=== PATIENT | male | born 1960 | race Caucasian/White ===

== ENCOUNTER → 2016-10-10 | Outpatient (CLI) | payer MEDICARE, MEDICAID ==
[~2016-10-10] MED LIST: AMLO5TAB4 PO; CARV12.52 PO; FENT1PAT11 TD; OXYC-197 PO; PREG300C PO; SITA1TAB6 PO; TACR1CAP PO; TEST1PAT7 TD; ZOLP5TAB PO
== END ==
LOC: SLEEP 19:54
PROVIDERS: ATTEND Family Medicine
DX: G47.33 Obstructive sleep apnea (adult) (pediatric) (principal)

== ENCOUNTER 2016-11-06 20:50 | Outpatient (CLI) | payer MEDICARE, MEDICAID | END 2016-11-07 06:42 | disposition home or self-care (01) | LOC: SLEEP 20:50 | PROVIDERS: ATTEND Family Medicine | DX: G47.33 Obstructive sleep apnea (adult) (pediatric) (principal) | CPT/HCPCS: 95811 ==

== ENCOUNTER 2017-11-01 21:38 | Emergency (ER) | payer MEDICARE, MEDICAID ==
[~2017-11-01] VITALS: Ht 180.3 cm; Wt 131.5 kg
--- OUTSIDE RECORDS SUMMARY | 2017-11-01 21:44 | XMS REPORT | Encounter Summary ---
Author Author [facility] Organization [facility] Address Unknown Phone Unavailable Care Team Providers Care Electric Drill Operator Name Role Phone Artie Berg MD PCP Liliane Malik RN Unavailable Unavailable Linnette Palomares RN Unavailable Unavailable Kendra Amin RN Unavailable Unavailable Ken Flores RN Unavailable Unavailable Max Colin RN Unavailable Unavailable Manju Velez RN Unavailable Unavailable Adriana Weaver CONTENT STRATEGIST Unavailable Rosaura Dockery Unavailable Unavailable Hilary Frank Unavailable Unavailable Maryanne Freitas Unavailable Unavailable Jesse Red MD Unavailable Encounter Details Date Type Department Care Team Description 08/28/2017 Orders Only Center for Mathew Man RN History of liver Transplantation-Liver transplant (HCC) (Primary Transplant Hep Dx); [address] Long-term use of [facility] [place] [address] Social History Tobacco Use Types Packs/Day Years Used Date Former Smoker Quit: 06/08/2001 Alcohol Use Drinks/Week oz/Week Comments Yes "occasional" Sex Assigned at Date Recorded Not on file as of this encounter Functional Status Functional Status Response Date of Assessment Does the patient have a hearing impairment: No 06/29/2017 Does the patient have a visual impairment: Yes 06/29/2017 Does the patient have impaired ambulation: No 06/29/2017 Does the patient have an activity of daily living No 06/29/2017 (ADL) impairment: Does the patient have an instrumental activity of No 06/29/2017 daily living (IADL) impairment: Cognitive Status Response Date of Assessment Does the patient have a cognitive impairment: No 06/29/2017 as of this encounter Plan of Treatment Not on fileas of this encounter Results * HEPATITIS C VIRAL LOAD PCR QUANT (10/19/2017 12:08 PM) Component Value Ref Range Hepatitis C PCR NOT DETECTED Quantitative Specimen Performing Laboratory Blood LABDE INTERFACE Narrative Outside Lab Verified by Katherine Faustin on 10/22/2017. in this encounter Visit Diagnoses Diagnosis History of liver transplant (HCC) - Primary Liver replaced by transplant Long-term use of immunosuppressant medication Encounter for long-term (current) use of other medications
--- OUTSIDE RECORDS SUMMARY | 2017-11-01 21:44 | XMS REPORT | Encounter Summary ---
Author Author [facility] Organization [facility] Address Unknown Phone Unavailable Care Team Providers Care Inspector Bicycle Name Role Phone Artie Berg MD PCP Liliane Malik RN Unavailable Unavailable Linnette Palomares RN Unavailable Unavailable Kendra Amin RN Unavailable Unavailable Ken Flores RN Unavailable Unavailable Max Colin RN Unavailable Unavailable Manju Velez RN Unavailable Unavailable Adriana Weaver INSPECTOR PRODUCTION PLASTIC PARTS Unavailable Rosaura Dockery Unavailable Unavailable Hilary Frank Unavailable Unavailable Maryanne Freitas Unavailable Unavailable Jesse Red MD Unavailable Encounter Details Date Type Department Care Team Description 10/22/2017 [facility] of [facility] Trans[facility]-Liver transplant (HCC); Transplant Hep Long-term use of [address] immunosuppressant [facility] [place] [address] Social History Tobacco Use Types [...] Diagnoses Diagnosis History of liver transplant (HCC) Liver replaced by transplant Long-term use of immunosuppressant medication Encounter for long-term (current) use of other medications
--- OUTSIDE RECORDS SUMMARY | 2017-11-01 21:44 | XMS REPORT | Clinical Summary ---
Author Author [facility] Organization [facility] Address Unknown Phone Unavailable Care Team Providers Care Email Marketing Coordinator Name Role Phone Artie Berg MD PCP Liliane Malik RN Unavailable Unavailable Linnette Palomares RN Unavailable Unavailable Kendra Amin RN Unavailable Unavailable Ken Flores RN Unavailable Unavailable Max Colin RN Unavailable Unavailable Manju Velez RN Unavailable Unavailable Adriana Weaver APRN Unavailable Rosaura Dockery Unavailable Unavailable Hilary Frank Unavailable Unavailable Maryanne Freitas Unavailable Unavailable Jesse Red MD Unavailable Source Comments Some departments are not documenting in the electronic medical record. If you do not see the information that you expected, contact Release of Information in the Health Information Management department at [phone] for further assistance in locating additional records.[facility] Allergies Active Allergy Reactions Severity Noted Date Comments Elle Cho 07/21/2001 Allergy recorded in SMS: Codeine~Reactions: ITCHING, HIVES Current Medications Prescription Sig. Disp. Refills Start End Date Status Date carvedilol (COREG) 25 mg Take 25 mg by mouth Twice Active tablet Daily With Meals. FENTANYL TD Apply 100 mcg to top of Active skin as directed every 3 days. PERCOCET PO Take 1 tablet by mouth Active three times daily as needed. LYRICA PO Take 150 mg by mouth Active twice daily. SERTRALINE HCL (ZOLOFT Take 100 mg by mouth Active PO) daily. mycophenolate mofetil Take 1 Tab by mouth twice 120 Tab 5 12/11/19 Active (CELLCEPT) 500 mg daily. Take on an empty 17 tabletIndications: stomach. Indications: PREVENTION OF LIVER PREVENTION OF LIVER TRANSPLANT REJECTION TRANSPLANT REJECTION PROGRAF 1 mg TAKE TWO CAPSULES BY 120 capsule 5 06/15/19 Active capsuleIndications: MOUTH TWICE DAILY FOR 18 History of liver PREVENTION OF LIVER transplant (HCC), TRANSPLANT REJECTION Encounter for long-term (current) use of high-risk medication glecaprevir-pibrentasvir Take 3 tablets by mouth 84 tablet 2 07/07/19 Active (MAVYRET) 100-40 mg tab daily. 18 acetaminophen (TYLENOL) Take 500 mg by mouth Active 500 mg tablet every 6 hours as needed for Pain. Max of 2,000 mg of acetaminophen in 24 hours. sitaGLIPtin (JANUVIA) 50 Take 50 mg by mouth Active mg tab daily. testosterone(+) Apply 2 packets topically Active (ANDROGEL) 1 % (50 mg/5 to affected area every g) transdermal gel morning. Apply to shoulders and upper arms as directed. Strum-3 Acid Ethyl Esters Take 1 capsule by mouth 90 capsule 3 Active 1 gram capIndications: three times daily. 18 HYPERTRIGLYCERIDEMIA ergocalciferol (VITAMIN Take 1 capsule by mouth 12 capsule 0 07/28/19 10/15/19 D-2) 50,000 unit every 7 days for 12 18 18 capsuleIndications: doses. Vitamin D Deficiency Active Problems Problem Noted Date salvage determiner current use of immunosuppressive drug 07/22/2017 History of liver transplant (HCC) 08/20/2015 Gastroesophageal reflux disease with esophagitis 08/20/2015 Oropharyngeal dysphagia 08/20/2015 Pharyngoesophageal dysphagia 08/20/2015 Morbid obesity due to excess calories (HCC) 08/20/2015 Encounters Date Type Specialty Care Team Description 10/28/2017 Telephone Transplant Surgery Mathew Man RN Other (HCV) 10/22/2017 Orders Only Transplant Surgery Katherine Faustin MA History of liver transplant (HCC); Long-term use of immunosuppressant medication 10/22/2017 Orders Only Transplant Surgery Katherine Faustin MA History of liver transplant (HCC); Long-term use of immunosuppressant medication 10/22/2017 Orders Only Transplant Surgery Rupesh Damon History of liver transplant (HCC); long-term current use of immunosuppressive drug 10/21/2017 Telephone Transplant Surgery Mathew Man RN Labs Only 10/20/2017 Orders Only Transplant Surgery Rupesh Damon History of liver transplant (HCC); long-term current use of immunosuppressive drug; Long-term use of immunosuppressant medication 10/01/2017 Telephone Transplant Surgery Mathew Man RN Other 08/31/2017 Pharmacy Visit 08/31/2017 Pharmacy Visit 08/28/2017 Orders Only Transplant Surgery Mathew Man RN History of liver transplant (HCC) (Primary Dx); Long-term use of immunosuppressant medication 08/27/2017 Orders Only Transplant Surgery Maryellen Salmawilma History of liver transplant (HCC); Long-term use of immunosuppressant medication 08/21/2017 Orders Only Transplant Surgery Monika Hilary History of liver transplant (HCC); Long-term use of immunosuppressant medication; long-term current use of immunosuppressive drug 08/18/2017 Orders Only Transplant Surgery Mathew Man RN 08/14/2017 Orders Only Transplant Surgery Jaxson Pinto History of liver transplant (HCC); Long-term use of immunosuppressant medication 08/10/2017 Pharmacy Visit 08/10/2017 Telephone Hepatology Sally Mcallister PHARMD Medication Follow- up 08/07/2017 Pharmacy Visit 08/07/2017 Pharmacy Visit 08/07/2017 Telephone Hepatology Sally Mcallister PHARMD Medication Follow- up 08/06/2017 Pharmacy Visit 08/05/2017 Pharmacy Visit 08/05/2017 Telephone Hepatology Sally Mcallister PHARMD Medication Follow- up 08/04/2017 Pharmacy Visit from Last 3 Months Social History Tobacco Use Types Packs/Day Years Used Date Former Smoker Quit: 06/08/2001 Tobacco Cessation: Counseling Given: Yes Alcohol Use Drinks/Week oz/Week Comments Yes "occasional" Sex Assigned at Date Recorded Not on file Last Filed Vital Signs Vital Sign Reading Time Taken Blood Pressure 148/64 06/29/2017 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 Pulse 70 06/29/2017 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 Temperature 36.7 C (98 F) 06/29/2017 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 Respiratory Rate 18 06/29/2017 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 Oxygen Saturation 95% 06/29/2017 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 Inhaled Oxygen - - Concentration Weight 141.4 kg (311 lb 12.8 oz) 06/29/2017 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 Height 180.3 cm (5' 10.98") 06/29/2017 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 * GGTP (10/19/2017 12:08 PM) Only the most recent of 2 results within the time period is included. Component Value Ref Range GGTP 25 8 - 61 U/L Specimen Performing Laboratory Blood LABDE INTERFACE Narrative Outside Lab Verified by Rupesh Damon on 10/22/2017. * TACROLIMUS LEVEL(FK506) (10/19/2017 12:08 PM) Only the most recent of 2 results within the time period is included. Component Value Ref Range Tacrolimus 3.6 (L) 5.0 - 15.0 ng/mL Specimen Performing Laboratory Blood LABDE INTERFACE Narrative Outside Lab Verified by Rupesh Damon on 10/22/2017. * CBC AND DIFF (10/19/2017 12:08 PM) Only the most recent of 2 results within the time period is included. Component Value Ref Range White Blood Cells 6.8 4.0 - 10.5 K/uL RBC 3.73 (L) 4.00 - 6.00 M/uL Hemoglobin 11.8 (L) 12.5 - 18.0 g/dl Hematocrit 36.0 36.0 - 52.0 % MCV 96.5 78.0 - 100.0 fL MCH 31.6 27.0 - 34.0 pg MCHC 32.8 31.0 - 37.0 g/dL RDW 16.1 (H) 11.6 - 14.8 % Platelet Count 148 (L) 150 - 450 K/uL MPV 10.9 9.3 - 12.4 fL Neutrophils 62 37 - 80 % Lymphocytes 25 10 - 50 % Monocytes 11 5 - 13 % Eosinophil 2 0 - 10 % Basophil 0 0 - 5 % Absolute Neutrophil Count 4.22 2.00 - 6.90 K/uL Absolute Lymph Count 1.69 1.00 - 3.40 K/uL Absolute Monocyte Count 0.72 0.10 - 1.30 K/uL Absolute Eosinophil Count 0.12 0.00 - 0.70 K/uL Absolute Basophil Count 0.02 0.00 - 0.20 K/uL Specimen Performing Laboratory Blood LABDE INTERFACE Narrative Outside Lab Verified by Katherine Faustin on 10/22/2017. * MAGNESIUM (10/19/2017 12:08 PM) Only the most recent of 2 results within the time period is included. Component Value Ref Range Magnesium 1.6 1.6 - 2.6 mg/dL Specimen Performing Laboratory Blood LABDE INTERFACE Narrative Outside Lab Verified by Rupesh Damon on 10/20/2017. * COMPREHENSIVE METABOLIC PANEL (10/19/2017 12:08 PM) Only the most recent of 2 results within the time period is included. Component Value Ref Range Sodium 137 136 - 145 mmol/L Potassium 4.1 3.5 - 5.1 mmol/L Chloride 99 98 - 107 mmol/L CO2 27 22 - 29 mmol/L Calcium 9.1 8.6 - 10.0 mg/dL Blood Urea Nitrogen 23 (H) 6 - 20 mg/dL Creatinine 1.35 (H) 0.67 - 1.17 mg/dL Glucose 351 (H) 74 - 109 mg/dL Total Protein 7.8 6.6 - 8.7 g/dL Albumin 3.5 3.5 - 5.2 g/dL Total Bilirubin 0.5 <=1.2 mg/dL Alk Phosphatase 145 (H) 40 - 129 U/L AST (SGOT) 18 U/L ALT (SGPT) 18 10 - 50 U/L eGFR Non 55 (L) >=60 ml/min/1.73 eGFR >60 >=60 mL Anion Gap 11 Specimen Performing Laboratory Blood LABDE INTERFACE Narrative Outside Lab Verified by Rupesh Damon on 10/20/2017. * PHOSPHORUS (08/20/2017 10:54 AM) Component Value Ref Range Phosphorus 3.0 2.5 - 4.5 mg/dL Specimen Performing Laboratory Blood LABDE INTERFACE Narrative Outside Lab Verified by Hilary Frank on 08/21/2017. from Last 3 Months
--- OUTSIDE RECORDS SUMMARY | 2017-11-01 21:44 | XMS REPORT | Encounter Summary ---
Author Author [facility] Organization [facility] Address Unknown Phone Unavailable Care Team Providers Care Transaction Coordinator Name Role Phone Artie Berg MD [...] Details Date Type Department Care Team Description 08/31/2017 Pharmacy Visit [facility] [address] [place] [address] Social History Tobacco Use Types Packs/Day Years [...] Treatment Not on fileas of this encounter Visit Diagnoses Not on filein this encounter
--- OUTSIDE RECORDS SUMMARY | 2017-11-01 21:44 | XMS REPORT | Encounter Summary ---
Author Author [facility] Organization [facility] Address Unknown Phone Unavailable Care Team Providers Care Brim Greaser Operator Name Role Phone Artie Berg MD PCP Liliane Malik RN Unavailable Unavailable Linnette Palomares RN Unavailable Unavailable Kendra Amin RN Unavailable Unavailable Ken Flores RN Unavailable Unavailable Max Colin RN Unavailable Unavailable Manju Velez RN Unavailable Unavailable Adriana Weaver INSULATION SUPERVISOR Unavailable Rosaura Dockery Unavailable Unavailable Hilary Frank Unavailable Unavailable Maryanne Freitas Unavailable Unavailable Jesse Red MD Unavailable Encounter Details Date Type Department Care Team Description 08/21/2017 Orders Only Center for Hilary Frank History of liver Transplantation-Liver transplant (HCC); Transplant Hep Long-term use of [address] [facility] immunosuppressant [facility]ENTER FOR medication; TRANSPLANTATION intermediate [place] [address] immunosuppressive drug [phone] Social History Tobacco Use Types Packs/Day Years [...] on fileas of this encounter Results * GGTP (08/20/2017 10:54 AM) Component Value Ref Range GGTP 32 8 - 61 U/L Specimen Performing Laboratory Blood LABDE INTERFACE Narrative Outside Lab Verified by Hilary Frank on 08/21/2017. * MAGNESIUM (08/20/2017 10:54 AM) Component Value Ref Range Magnesium 1.6 1.6 - 2.6 mg/dL Specimen Performing Laboratory Blood LABDE INTERFACE Narrative Outside Lab Verified by Hilary Frank on 08/21/2017. * PHOSPHORUS (08/20/2017 10:54 AM) Component Value Ref Range Phosphorus 3.0 2.5 - 4.5 mg/dL Specimen Performing Laboratory Blood LABDE INTERFACE Narrative Outside Lab Verified by Hilary Frank on 08/21/2017. in this encounter Visit Diagnoses Diagnosis History of liver transplant (HCC) Liver replaced by transplant Long-term use of immunosuppressant medication Encounter for long-term (current) use of other medications [facility] current use of immunosuppressive drug
--- OUTSIDE RECORDS SUMMARY | 2017-11-01 21:44 | XMS REPORT | Encounter Summary ---
Author Author [facility] Organization [facility] Address Unknown Phone Unavailable Care Team Providers Care Smelter Operator Name Role Phone Artie Berg MD [...] Care Team Description 10/22/2017 Orders Only Center for Rupesh Damon History of liver Transplantation-Liver transplant (HCC); Transplant Hep [facility] current use of [address] immunosuppressive drug [place] [address] Social History Tobacco Use Types [...] on fileas of this encounter Results * TACROLIMUS LEVEL(FK506) (10/19/2017 12:08 PM) Component Value Ref Range Tacrolimus 3.6 (L) 5.0 - 15.0 ng/mL Specimen Performing Laboratory Blood LABDE INTERFACE Narrative Outside Lab Verified by Rupesh Damon on 10/22/2017. * GGTP (10/19/2017 12:08 PM) Component Value Ref Range GGTP 25 8 - 61 U/L Specimen Performing Laboratory Blood LABDE INTERFACE Narrative Outside Lab Verified by Rupesh Damon on 10/22/2017. 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
--- OUTSIDE RECORDS SUMMARY | 2017-11-01 21:44 | XMS REPORT | Encounter Summary ---
Author Author [facility] Organization [facility] Address Unknown Phone Unavailable Care Team Providers Care Coil Maker Name Role Phone Artie Berg MD PCP Liliane Malik RN Unavailable Unavailable Linnette Palomares RN Unavailable Unavailable Kendra Amin RN Unavailable Unavailable Ken Flores RN Unavailable Unavailable Max Colin RN Unavailable Unavailable Manju Velez RN Unavailable Unavailable Adriana Weaver MANAGER PHARMACY Unavailable Rosaura Dockery Unavailable Unavailable Hilary Frank Unavailable Unavailable Maryanne Freitas Unavailable Unavailable Jesse Red MD Unavailable Encounter Details Date Type Department Care Team Description 10/22/2017 [facility] of liver Transplantation-Liver transplant (HCC); Transplant Hep Long-term use of [address] immunosuppressant [facility] [place] [address] Social History Tobacco Use Types [...] on fileas of this encounter Results * CBC AND DIFF (10/19/2017 12:08 PM) Component Value Ref Range White Blood Cells [...]
--- OUTSIDE RECORDS SUMMARY | 2017-11-01 21:44 | XMS REPORT | Encounter Summary ---
Author Author [facility] Organization [facility] Address Unknown Phone Unavailable Care Team Providers Care Compliance Monitor Name Role Phone Artie Berg MD PCP [...] Details Date Type Department Care Team Description 08/27/2017 Orders Only Center for Boewn Bojorquez History of liver Transplantation-Liver transplant (HCC); Transplant Hep Long-term use of [address] immunosuppressant [facility] [place] [address] Social History Tobacco Use Types [...] of this encounter Results * TACROLIMUS LEVEL(FK506) (08/20/2017 10:54 AM) Component Value Ref Range Tacrolimus 3.9 (L) 5.0 - 15.0 ng/mL Specimen Performing Laboratory Blood LABDE INTERFACE Narrative Outside Lab Verified by Bowen Bojorquez on 08/27/2017. in this encounter Visit Diagnoses Diagnosis History of liver transplant (HCC) Liver replaced by transplant Long-term use of immunosuppressant medication Encounter for long-term (current) use of other medications
--- OUTSIDE RECORDS SUMMARY | 2017-11-01 21:44 | XMS REPORT | Encounter Summary ---
Author Author [facility] Organization [facility] Address Unknown Phone Unavailable Care Team Providers Care Sleeve Machine Tender Name Role Phone Artie Berg MD PCP [...] Department Care Team Description 08/31/2017 Pharmacy Visit Call [facility] [address] [place] [id number] Social History Tobacco Use Types Packs/Day Years [...]
--- OUTSIDE RECORDS SUMMARY | 2017-11-01 21:44 | XMS REPORT | Encounter Summary ---
Author Author [facility] Organization [facility] Address Unknown Phone Unavailable Care Team Providers Care Rn Teacher Name Role Phone Artie Berg MD PCP Liliane Malik RN Unavailable Unavailable Linnette Palomares RN Unavailable Unavailable Kendra Amin RN Unavailable Unavailable Ken Flores RN Unavailable Unavailable Max Colin RN Unavailable Unavailable Manju Velez RN Unavailable Unavailable Adriana Weaver REAL ESTATE OFFICE SUPERVISOR Unavailable Rosaura Dockery Unavailable Unavailable Hilary Frank Unavailable Unavailable Maryanne Freitas Unavailable Unavailable Jesse Red MD Unavailable Encounter Details Date Type Department Care Team Description 10/20/2017 Orders Only Center for Rupesh Damon History of liver Transplantation-Liver transplant (HCC); Transplant Hep residential current use of [address] immunosuppressive drug; CENTER FOR Long-term use of [place] [address] medication [phone] Social History Tobacco Use Types Packs/Day Years [...] on fileas of this encounter Results * MAGNESIUM (10/19/2017 12:08 PM) Component Value Ref Range Magnesium 1.6 1.6 - 2.6 mg/dL Specimen Performing Laboratory Blood LABDE INTERFACE Narrative Outside Lab Verified by Rupesh Damon on 10/20/2017. * COMPREHENSIVE METABOLIC PANEL (10/19/2017 12:08 PM) Component Value Ref Range Sodium 137 136 [...] Lab Verified by Rupesh Damon on 10/20/2017. in this encounter Visit Diagnoses Diagnosis History of liver transplant (HCC) Liver replaced by transplant residential current use of immunosuppressive drug Long-term use of immunosuppressant medication Encounter for long-term (current) use of other medications
--- OUTSIDE RECORDS SUMMARY | 2017-11-01 21:44 | XMS REPORT | Encounter Summary ---
Author Author [facility] Organization [facility] Address Unknown Phone Unavailable Care Team Providers Care Tire Center Supervisor Name Role Phone Artie Berg MD PCP Liliane Malik RN Unavailable Unavailable Linnette Palomares RN Unavailable Unavailable Kendra Amin RN Unavailable Unavailable Ken Flores RN Unavailable Unavailable Max Colin RN Unavailable Unavailable Manju Velez RN Unavailable Unavailable Adriana Weaver WATER PLUMBER Unavailable Rosaura Dockery Unavailable Unavailable Hilary Frank Unavailable Unavailable Maryanne Freitas Unavailable Unavailable Jesse Red MD Unavailable Encounter Details Date Type Department Care Team Description 08/18/2017 [facility] [place] [facility] Hep [address] [facility] [place] [address] Social History Tobacco Use Types [...]
--- OUTSIDE RECORDS SUMMARY | 2017-11-01 21:44 | XMS REPORT | Encounter Summary ---
Author Author [facility] Organization [facility] Address Unknown Phone Unavailable Care Team Providers Care Dental Therapist Name Role Phone Artie Berg MD PCP Liliane Malik RN Unavailable Unavailable Linnette Palomares RN Unavailable Unavailable Kendra Amin RN Unavailable Unavailable Ken Flores RN Unavailable Unavailable Max Colin RN Unavailable Unavailable Manju Velez RN Unavailable Unavailable Adriana Weaver APRN Unavailable Rosaura Dockery Unavailable Unavailable Hilary Frank Unavailable Unavailable Maryanne Freitas Unavailable Unavailable Jesse Red MD Unavailable Reason for Visit * Reason Comments Labs Only Encounter Details Date Type Department Care Team Description 10/21/2017 Telephone Center Mathew Maloney RN Labs Only Transplantation-Liver Transplant Hep [address] [facility] [place] [address] Social History Tobacco Use Types [...] impairment: No 06/29/2017 as of this encounter Miscellaneous Notes * Telephone Encounter - Mathew Man RN - 10/21/2017 12:00 PM CDT [place] spoke with the lab and requested the CBC with diff be faxed over. Lab confirmed they would fax the labs over. in this encounter Plan of Treatment Not on fileas of this encounter Visit Diagnoses Not on filein this encounter
--- OUTSIDE RECORDS SUMMARY | 2017-11-01 21:44 | XMS REPORT | Encounter Summary ---
Author Author [facility] Organization [facility] Address Unknown Phone Unavailable Care Team Providers Care Employment Assistant Name Role Phone Artie Berg MD PCP Liliane Malik RN Unavailable Unavailable Linnette Palomares RN Unavailable Unavailable Kendra Amin RN Unavailable Unavailable Ken Flores RN Unavailable Unavailable Max Colin RN Unavailable Unavailable Manju Velez RN Unavailable Unavailable Adirana Weaver APRN Unavailable Rosaura Dockery Unavailable Unavailable Hilary Frank Unavailable Unavailable Maryanne Freitas Unavailable Unavailable Jesse Red MD Unavailable Reason for Visit * Reason Comments Other HCV Encounter Details Date Type Department Care Team Description 10/28/2017 Telephone Mathew Richardson RN Other (HCV) Transplantation-Liver Transplant Hep [address] [facility] [place] [address] Social History Tobacco Use Types [...] Telephone Encounter - Mathew Man RN - 10/28/2017 9:13 AM CDT LON LARA requesting a call back in this encounter Plan of Treatment Not on fileas of this encounter Visit Diagnoses Not on filein this encounter
--- OUTSIDE RECORDS SUMMARY | 2017-11-01 21:44 | XMS REPORT | Encounter Summary ---
Author Author [facility] Organization [facility] Address Unknown Phone Unavailable Care Team Providers Care Community Development Planner Name Role Phone Artie Berg MD PCP [...] Reason for Visit * Reason Comments Other Encounter Details Date Type Department Care Team Description 10/01/2017 Telephone Center Mathew Maloney RN Other Transplantation-Liver Transplant Hep [address] [facility] [place] [address] Social History Tobacco Use Types [...] Miscellaneous Notes * Telephone Encounter - Mathew Man, DIANA - 10/01/2017 9:26 AM CDT LON spoke with the patient who requested he have a bone mineral density scan set up at the [facility] in [place]. LON confirmed LON spoke with the patient and informed him his appointment will be on October 08 @ 1020 with a 1000 arrival time. This will be preformed at the [facility] patient V /U and confirmed he would call [phone] and get the time changed because he watches his granddaughter in the morning but he will go to the appointment. LON will fax the order over. Patient instructed to wear loose clothes with no metal patient V/U and confirmed he would buy sweats. in this encounter Plan of Treatment Not on fileas of this encounter Visit Diagnoses Not on filein this encounter
--- OUTSIDE RECORDS SUMMARY | 2017-11-01 21:45 | XMS REPORT | Encounter Summary ---
Author Author [facility] Organization [facility] Address Unknown Phone Unavailable Care Team Providers Care Field Artillery Crewmember Name Role Phone Artie Berg MD PCP [...] Details Date Type Department Care Team Description 08/05/2017 Pharmacy Visit Call Center Pharmacy [address] [place] [id number] Social History Tobacco Use Types Packs/Day Years [...]
--- OUTSIDE RECORDS SUMMARY | 2017-11-01 21:45 | XMS REPORT | Encounter Summary ---
Author Author [facility] Organization [facility] Address Unknown Phone Unavailable Care Team Providers Care Federal Air Marshal Name Role Phone Artie Berg MD PCP Liliane Malik RN Unavailable Unavailable Linnette Palomares RN Unavailable Unavailable Kendra Amin RN Unavailable Unavailable eKn Flores RN Unavailable Unavailable Max Colin RN Unavailable Unavailable Manju Velez RN Unavailable Unavailable Adriana Weaver APRN Unavailable Rosaura Dockery Unavailable Unavailable Hilary Frank Unavailable Unavailable Maryanne Freitas Unavailable Unavailable Jesse Red MD Unavailable Encounter Details Date Type Department Care Team Description 08/04/2017 Pharmacy Visit Call Center Pharmacy [address] [place] [id number] Social History Tobacco Use Types Packs/Day Years [...]
--- OUTSIDE RECORDS SUMMARY | 2017-11-01 21:45 | XMS REPORT | Encounter Summary ---
Author Author [facility] Organization [facility] Address Unknown Phone Unavailable Care Team Providers Care Computer Applications Instructor Name Role Phone Artie Berg MD PCP Liliane Malik RN Unavailable Unavailable Linnette Palomares RN Unavailable Unavailable Kendra Amin RN Unavailable Unavailable Ken Flores RN Unavailable Unavailable Max Colin RN Unavailable Unavailable Manju Velez RN Unavailable Unavailable Adriana Weaver APRN Unavailable Rosaura Dockery Unavailable Unavailable Hilary Frank Unavailable Unavailable Maryanne Freitas Unavailable Unavailable Jesse Red MD Unavailable Reason for Visit * Reason Comments Medication Follow-up Encounter Details Date Type Department Care Team Description 08/10/2017 Telephone Center for Sally Mcallister PHARMD Medication Follow- up Transplantation-Hepatolog y Clinic [address] [facility] [place] [address] Social History Tobacco Use Types Packs/Day Years [...] encounter Miscellaneous Notes * Telephone Encounter - Ary Sally, KAITLIN - 08/10/2017 3:21 PM LEADITE MAN Formatting of this note may be different from the original. Patient Reassessment: Hepatitis C Therapy Appropriateness of Hepatitis C Therapy The regimen of Mavyret, 3 tablet by mouth once daily for a total of 12 weeks is appropriate for Renny Booker who has hepatitis C, genotype 1a, is treatment naive and does not have cirrhosis. No renal or hepatic adjustments are required. At this time there is no planned dose titration. Renny Booker is meeting their goal of adherence with their regimen. At this time there are no relevant labs to compare to baseline. Labs will be assessed 12 weeks after the patient completes their regimen in order to assess their response to therapy. It is appropriate for Renny Booker to continue their current regimen and complete the full duration of therapy ( described above) for treatment of hepatitis C virus. Patient assessments Subjective clinical assessment: on a scale of 1 to 10, the patient rates they are feeling 8 out of 10 while on treatment. Subjective Quality of Life Measurement: In the past 30 days, Renny Booker was able to complete all normal daily activities. Adverse Effects Renny Booker is not experiencing any significant adverse effects to this medication regimen. Adherence Refill history was reviewed. Renny Booker received their first fill of medication(s) and is not due for another refill yet. They are adherent with refills. The patient was reminded about the refill process. Renny Booker reports missing 1 doses since starting treatment. Patient was re-educated on importance of adherence. Medication Reconciliation A medication history and reconciliation were performed (including prescription medications, supplements, over the counter, and herbal products). The medication list was updated and the patients current medication list is included below. Home Medications Medication Sig acetaminophen (TYLENOL) 500 mg tablet Take 500 mg by mouth every 6 hours as needed for Pain. Max of 2,000 mg of acetaminophen in 24 hours. carvedilol (COREG) 25 mg tablet Take 25 mg by mouth Twice Daily With Meals. ergocalciferol (VITAMIN D-2) 50,000 unit capsule Take 1 capsule by mouth every 7 days for 12 doses. FENTANYL TD Apply 100 mcg to top of skin as directed every 3 days. glecaprevir-pibrentasvir (MAVYRET) 100-40 mg tab Take 3 tablets by mouth daily. LYRICA PO Take 150 mg by mouth twice daily. mycophenolate mofetil (CELLCEPT) 500 mg tablet Take 1 Tab by mouth twice daily. Take on an empty stomach. Indications: PREVENTION OF LIVER TRANSPLANT REJECTION PERCOCET PO Take 1 tablet by mouth three times daily as needed. PROGRAF 1 mg capsule TAKE TWO CAPSULES BY MOUTH TWICE DAILY FOR PREVENTION OF LIVER TRANSPLANT REJECTION SERTRALINE HCL (ZOLOFT PO) Take 100 mg by mouth daily. sitaGLIPtin (JANUVIA) 50 mg tab Take 50 mg by mouth daily. testosterone(+) (ANDROGEL) 1 % (50 mg/5 g) transdermal gel Apply 2 packets topically to affected area every morning. Apply to shoulders and upper arms as directed. Drug-drug and drug-food interactions between the patients specialty medication and their medication list were assessed and reviewed with the patient. No new significant drug-drug or drug-food interactions were identified. Their regimen can be taken with food. The patient was instructed to speak with their health care provider before starting any new drug, including prescription or over the counter, natural / herbal products, or vitamins. Allergies Allergies Allergen Reactions Codeine Allergy recorded in SMS: Codeine~Reactions: ITCHING, HIVES status potential was reviewed with the patient. As the patient is male, education was not applicable. Risk Evaluation and Mitigation Strategy (REMS) Assessment No REMS is required for this medication. The patient was encouraged to call with questions. Followup Plan Re-assessment has been completed. The patients response to therapy will be assessed 12 weeks after completion of therapy. Sally Mcallister PHARMD in this encounter Plan of Treatment Not on fileas of this encounter Visit Diagnoses Not on filein this encounter
--- OUTSIDE RECORDS SUMMARY | 2017-11-01 21:45 | XMS REPORT | Encounter Summary ---
Author Author [facility] Organization [facility] Address Unknown Phone Unavailable Care Team Providers Care Level Vial Marker Name Role Phone Artie Berg MD PCP [...] Details Date Type Department Care Team Description 08/07/2017 Pharmacy Visit Call Center Pharmacy [address] [place] [id number] Social History Tobacco Use Types Packs/Day Years [...]
--- OUTSIDE RECORDS SUMMARY | 2017-11-01 21:45 | XMS REPORT | Encounter Summary ---
Author Author [facility] Organization [facility] Address Unknown Phone Unavailable Care Team Providers Care Utility Mechanic Supervisor Name Role Phone Artie Berg MD [...] Details Date Type Department Care Team Description 08/14/2017 Orders Only Center for Jaxson Pinto History of liver Transplantation-Liver transplant (HCC); Transplant Hep Long-term use of [address] immunosuppressant [facility] [place] [address] Social History Tobacco Use Types [...] on fileas of this encounter Results * COMPREHENSIVE METABOLIC PANEL (08/20/2017 10:54 AM) Component Value Ref Range Sodium 140 136 - 145 mmol/L Potassium 4.2 3.5 - 5.1 mmol/L Chloride 101 98 - 107 mmol/L CO2 30 (H) 22 - 29 mmol/L Calcium 9.1 mg/dL Blood Urea Nitrogen 21 (H) 6 - 20 mg/dL Creatinine 1.34 (H) 0.67 - 1.17 mg/dL Glucose 262 (H) mg/dL Total Protein 7.3 6.6 - 8.7 Albumin 3.6 3.5 - 5.2 g/dL Total Bilirubin 0.4 <=72 mg/dL Alk Phosphatase 131 (H) 40 - 129 U/L AST (SGOT) 15 U/L ALT (SGPT) 14 0 - 50 Anion Gap 9 Specimen Performing Laboratory Blood LABDE INTERFACE Narrative Outside Lab Verified by Hilary Frank on 08/21/2017. * CBC AND DIFF (08/20/2017 10:54 AM) Component Value Ref Range White Blood Cells 6.3 4.0 - 10.5 RBC 3.95 (L) 4.00 - 6.00 M/uL Hemoglobin 11.7 (L) 12.5 - 18.0 g/dL Hematocrit 36.2 36.0 - 52.0 % MCV 91.6 78.0 - 100.0 MCH 29.6 27.0 - 34.0 MCHC 32.3 31.0 - 37.0 g/dL Platelet Count 161 150 - 450 K/uL Neutrophils 57 37 - 80 % Lymphocytes 36 10 - 50 % Monocytes 5 5 - 13 % Eosinophil 2 0 - 10 % Basophil 0 0 - 5 % Absolute Neutrophil Count 3.60 2.00 - 6.90 K/uL Absolute Lymph Count 2.27 1.00 - 3.40 K/uL Absolute Monocyte Count 0.34 0.10 - 1.30 K/uL Absolute Eosinophil Count 0.11 0.00 - 0.70 K/uL Absolute Basophil Count 0.01 0.00 - 0.20 K/uL Specimen Performing Laboratory Blood LABDE INTERFACE Narrative Outside Lab Verified by Hilary Frank on 08/21/2017. in this encounter Visit Diagnoses Diagnosis History of liver transplant (HCC) Liver replaced by transplant Long-term use of immunosuppressant medication Encounter for long-term (current) use of other medications
--- OUTSIDE RECORDS SUMMARY | 2017-11-01 21:45 | XMS REPORT | Encounter Summary ---
Author Author [facility] Organization [facility] Address Unknown Phone Unavailable Care Team Providers Care Gameplay Programmer Name Role Phone Artie Berg MD PCP [...] Details Date Type Department Care Team Description 08/06/2017 Pharmacy Visit Call Center Pharmacy [address] [place] [address] Social History Tobacco Use Types Packs/Day Years [...]
--- OUTSIDE RECORDS SUMMARY | 2017-11-01 21:45 | XMS REPORT | Encounter Summary ---
Author Author [facility] Organization [facility] Address Unknown Phone Unavailable Care Team Providers Care Boots And Shoes Supervisor Name Role Phone Artie Berg MD [...] Department Care Team Description 08/07/2017 Pharmacy Visit [facility] [address] [place] [address] Social History Tobacco Use Types Packs/Day Years [...]
--- OUTSIDE RECORDS SUMMARY | 2017-11-01 21:45 | XMS REPORT | Encounter Summary ---
Author Author [facility] Organization [facility] Address Unknown Phone Unavailable Care Team Providers Care Director Industrial Nursing Name Role Phone Artie Berg MD PCP [...] Date Type Department Care Team Description 08/07/2017 Telephone Center for Sally Mcallister PHARMD Medication Follow- up Transplantation-Hepatolog y Clinic [address] [facility] [place] [address] Social History Tobacco Use Types [...] encounter Miscellaneous Notes * Telephone Encounter - Sally Mcallister PHARMD - 08/07/2017 10:09 AM MARINE EQUIPMENT RESEARCH ENGINEER Attempted to call Renny Booker to verify compliance and assess tolerance of his hepatitis C medications that were recently started. No answer. Left voicemail asking patient to return call to pharmacist at [phone]. Sally Mcallister PHARMD. in this encounter Plan of Treatment Not on fileas of this encounter Visit Diagnoses Not on filein this encounter
--- OUTSIDE RECORDS SUMMARY | 2017-11-01 21:45 | XMS REPORT | Encounter Summary ---
Author Author [facility] Organization [facility] Address Unknown Phone Unavailable Care Team Providers Care Regional Extension Service Specialist Name Role Phone Artie Berg MD PCP [...] Date Type Department Care Team Description 08/05/2017 Telephone Center for Sally Mcallister PHARMD Medication Follow- up Transplantation-Hepatolog y Clinic [address] [facility] [place] [address] Social History Tobacco Use Types [...] Telephone Encounter - Sally Mcallister PHARMD - 08/05/2017 9:42 AM CLERK RATING Attempted to call Renny Booker to verify compliance and assess tolerance of his hepatitis C medications that were recently started. No answer. Left voicemail asking patient to return call to pharmacist at [phone]. Sally Mcallister PHARMD. in this encounter Plan of Treatment Not on fileas of this encounter Visit Diagnoses Not on filein this encounter
--- OUTSIDE RECORDS SUMMARY | 2017-11-01 21:45 | XMS REPORT | Encounter Summary ---
Author Author [facility] Organization [facility] Address Unknown Phone Unavailable Care Team Providers Care Heel Lift Gouger Name Role Phone Artie Berg MD PCP [...] Date Type Department Care Team Description 08/10/2017 Pharmacy Visit Call Center Pharmacy [address] [place] [address] Social History Tobacco Use Types Packs/Day Years [...]
[2017-11-01] MEDS ORDERED: LACTATED RINGERS 1,000 ML IV ONE (22:15)
[2017-11-01 22:23] LABS: BASOPHILS % (AUTO) 0 % (0-10); EOSINOPHILS % (AUTO) 0 % (0-10); HEMATOCRIT 31 % (40-54); HEMOGLOBIN 10.2 G/DL (13.3-17.7); LYMPHOCYTES # (AUTO) 1.2 X 10^3 (1.0-4.0); LYMPHOCYTES % (AUTO) 8 % (12-44); MEAN CORPUSCULAR HEMOGLOBIN 31 PG (25-34); MEAN CORPUSCULAR HGB CONC 33 G/DL (32-36); MEAN CORPUSCULAR VOLUME 93 FL (80-99); MEAN PLATELET VOLUME 10.3 FL (7.4-10.4); MONOCYTES # (AUTO) 0.9 X 10^3 (0.0-1.0); MONOCYTES % (AUTO) 6 % (0-12); NEUTROPHILS # (AUTO) 12.7 X 10^3 (1.8-7.8); NEUTROPHILS % (AUTO) 86 % (42-75); PLATELET COUNT 206 10^3/uL (130-400); RED BLOOD COUNT 3.31 10^6/uL (4.35-5.85); RED CELL DISTRIBUTION WIDTH 16.6 % (10.0-14.5); WHITE BLOOD COUNT 14.8 10^3/uL (4.3-11.0)
[2017-11-01] MEDS ORDERED: IBUPROFEN 800 MG (MOTRIN) TAB PO ONE (22:30)
[2017-11-01 22:33] LABS: ABG BASE EXCESS 1.3 MMOL/L (-2.5-2.5); ABG OXYGEN SATURATION 96 % (94-100); ABG PCO2 51 MMHG (35-45); ABG PO2 79 MMHG (79-93); ABG TCO2 27.6 MMOL/L (21.0-31.0)
[2017-11-01 22:34] LABS: ALANINE AMINOTRANSFERASE 26 U/L (0-55); ALBUMIN 3.6 GM/DL (3.2-4.5); ALKALINE PHOSPHATASE 134 U/L (40-136); BUN/CREATININE RATIO 12; CALCIUM 9.3 MG/DL (8.5-10.1); CARBON DIOXIDE 23 MMOL/L (21-32); CHLORIDE 94 MMOL/L (98-107); CREATINE KINASE 26 U/L (30-200); CREATININE SERUM 3.14 MG/DL (0.60-1.30); GFR ESTIMATED 21; GLUCOSE 232 MG/DL (70-105); MAGNESIUM 1.9 MG/DL (1.8-2.4); POTASSIUM 4.1 MMOL/L (3.6-5.0); SODIUM 131 MMOL/L (135-145); TOTAL PROTEIN 8.8 GM/DL (6.4-8.2)
[2017-11-01 22:35] LABS: ABG PH 7.34 (7.37-7.43); ALLENS TEST POSITIVE; INSPIRED O2 2L; PATIENT TEMP 101.2; VENTILATOR NO
--- NOTE | 2017-11-01 22:35 | ED General ---
General Chief Complaint: Altered Mental Status Stated Complaint: WEAKNESS AMS DIZZY Source of Information: Patient (GIVES VERY MINIMAL INFORMATION), Family (SON DOES ALL TALKING FOR PT) History of Present Illness Date Seen by Provider: November 01, 2017 Time Seen by Provider: 22:17 Initial Comments PT ARRIVES VIA POV FROM HOME WITH SON AND OTHER FAMILY MEMBERS FAMILY REPORTS THAT PT HAS BEEN CONFUSED, SLEEPING ALL THE TIME, HAS HAD GENERALIZED WEAKNESS--SYMPTOMS FOR SEVERAL DAYS, WORSE SINCE THURSDAY PT LIVES ALONE AND THE LAST TIME ANYONE ACTUALLY SAW PT WAS ON THURSDAY PT REPORTED TO THEM THAT HE PASSED OUT YESTERDAY AND THURSDAY AND POSSIBLY TODAY, WELL EARLIER IN THE WEEK--POSSIBLY THURSDAY OR THURSDAY--STATES HE PASSED OUT AND WOKE UP ON THE FLOOR. NONE OF THESE EPISODES WERE WITNESSED. FAMILY REPORTS THAT HE HAS BEEN CONFUSED, VERY DROWSY SINCE THURSDAY, AND FOUND HIM ALMOST UNRESPONSIVE A COUPLE OF HOURS AGO, AND BROUGHT HIM HERE FAMILY NOTICED THAT HIS LEFT LOWER LEG IS SWOLLEN, RED AND HOT--IS UNKNOWN HOW LONG IT HAS BEEN LIKE THIS. PT HAS NOT BEEN ABLE TO BEAR WEIGHT ON LEFT LEG FOR UNKNOWN LENGTH OF TIME DUE TO LEFT LEG/ANKLE/FOOT PAIN. --REPORTEDLY BEGAN SOMETIME THIS WEEK PT ALSO HAS DIABETIC FOOT ULCER ON BOTTOM OF RIGHT FOOT FOR UNKNOWN LENGTH OF TIME--HAS NOT SOUGHT CARE FOR IT. PT WILL TALK AND ANSWER SOME QUESTIONS, BUT IS VERY ARGUMENTATIVE WITH ALL ASPECTS OF CARE, REPEATS HIMSELF--CAN'T REMEMBER CONVERSATION THAT JUST OCCURRED PT REFUSES TYLENOL AND MOTRIN--PT STATES IS BECAUSE HE HAS HAD A LIVER TRANSPLANT 15 YEARS AGO, AND BECAUSE HE HAS CHRONIC RENAL FAILURE, BUT IS NOT ON DIALYSIS YET PT IS DIABETIC BUT DOES NOT CHECK BLOOD SUGAR PCP: PLATFORM LOADER AT [facility] -- LIVER TRANSPLANT / DR. RICHARDSON Allergies and Home Medications Allergies Coded Allergies: codeine (Unverified Allergy, Mild, 07/16/07) Home Medications Amlodipine Besylate 5 Mg Tablet, 5 MG PO DAILY, (Reported) Carvedilol 12.5 Mg Tablet, 12.5 MG PO BID, (Reported) Fentanyl 1 Each Patch.td72, 100 MCG TD Q72H, (Reported) Oxycodone HCl/Acetaminophen 1 Each Tablet, 1 EACH PO Q4H PRN for PAIN Prescribed by: FILOMENA SEGUNDO on 08/24/15 1231 Pregabalin 300 Mg Capsule, 300 MG PO BID, (Reported) Sitagliptin Phos/Metformin HCl 1 Each Tablet, 1 EACH PO BID, (Reported) Tacrolimus 1 Mg Capsule, 1.5 MG PO BID, (Reported) Testosterone 1 Each Patch.td24, 1 EACH TD DAILY, (Reported) Zolpidem Tartrate 5 Mg Tablet, 5 MG PO HS, (Reported) Patient Home Medication List Home Medication List Reviewed: Yes Review of Systems Constitutional: other (PT HAS TEMP 101.2 ON ARRIVAL--PT / FAMILY UNAWARE THAT HE HAS HAD FEVER. PT IS VERY LIMITED HISTORIAN AND UNABLE TO ANSWER MOST QUESTIONS ) Musculoskeletal: see HPI Skin: see HPI Psychiatric/Neurological: See HPI Past Wogqmqj-Aybeps-Nkuavb Hx Patient Social History Alcohol Use: Denies Use Recreational Drug Use: No Smoking Status: Current Everyday Smoker (1 PPD) Type Used: Cigarettes (1 PPD) Past Medical History Surgeries: Yes (BILATERAL INGUINAL HERNIA REPAIRS CHILD; TOTAL ABDOMINAL HERNIA REPAIRS X 4; EGD; BASAL CELL SKIN CANCERS REMOVED RIGHT CHEEK; BENIGN TUMOR RIGHT SHOULDER; LIVER TRANSPLANT 2003; KNEE SCOPE) Abdominal, Liver Transplant, Orthopedic Respiratory: Yes Sleep Apnea Currently Using CPAP: Yes Cardiac: Yes Hypertension Neurological: Yes Neuropathy Reproductive Disorders: No HIV/AIDS: No Genitourinary: Yes (NO DIALYSIS) Kidney Infection, Kidney Stones, Renal Failure Gastrointestinal: Yes (HEPATITIS C; S/P LIVER TRANSPLANT 2003--HISTORY OF SUBACUTE REJECTIONS ON SEVERAL OCCASIONS; BILATERAL INGUINAL HERNIA REPAIRS CHILD) Abdominal Hernia, Liver Disease/Jaundice, Chronic Diarrhea, Hepatitis, Polyps Musculoskeletal: Yes (CHRONIC GENERALIZED PAIN ) Degenerate Disk Disease, Arthritis, Chronic Back Pain, Fractures, Gout Endocrine: Yes (MORBID OBESITY) Diabetes, Insulin dep Loss of Vision: Denies Hearing Impairment: Denies Cancer: Yes (BASAL CELL SKIN CANCER RIGHT CHEEK--S/P MULTIPLE EXCISIONS) Skin Did You Recieve Any Treatments: Yes What Type of Treatment Did You: Surgical Intervention Integumentary: Yes (DIABETIC FOOT ULCERS; BASAL CELL SKIN CANCER) Blood Disorders: Yes (ANTITHROMBIN 3 DEFICIENCY) Adverse Reaction/Blood Tranf: No (HAS HAD WITHOUT REACTION) Physical Exam Vital Signs Vital Signs - First Documented 11/01/17 11/01/17 21:40 22:00 Temp 101.2 Pulse 92 Resp 10 B/P (MAP) 122/61 (81) Pulse Ox 92 O2 Delivery Room Air O2 Flow Rate 2.00 Capillary Refill : General Appearance: Obese, Other (SOMEWHAT AGITATED, ARGUMENTATIVE, BUT CANNOT RECALL CONVERSATIONS THAT JUST OCCURRED. SKIN VERY WARM TO TOUCH. VERY MALODOROUS. REEKS OF CIGARETTES. LETHARGIC/DROWSY. ) HEENT: Other (ORAL MUCOSA DRY) Respiratory: Normal Breath Sounds, No Accessory Muscle Use Cardiovascular: Regular Rate, Rhythm, No Murmur Gastrointestinal: Non Tender, Soft Extremity: Other (1+ EDEMA RIGHT LOWER LEG; 2-3+ EDEMA LEFT LOWER LEG--ALSO LEFT LOWER LEG VERY WARM, ERYTHEMATOUS AND FIRM/INDURATED. GOOD CAPILLARY REFILL BILATERALLY. NO OBVIOUS OPEN WOUNDS TO LEFT LEG/FOOT. HAS A CHRONIC APPEARING FOOT ULCER TO RIGHT FOOT --PLANTAR ASPECT AT BASE OF FIRST MTP JOINT. AT LEAST A STAGE 2+--WITH OOZING OF PURULENT DRAINAGE. NO GROSS SURROUNDING ERYTHEMA OR WARMTH. ) Neurologic/Psychiatric: Sensory Deficit (DECREASED SENSATION TO FEET), Other ( LETHRAGIC/SOMEWHAT DROWSY, YET AGITATED AND VERY ARGUMENATIVE, BUT POOR MEMORY AND REPEATS HIMSELF AND CANNOT RECALL CONVERSTATIONS THAT JUST OCCURRED. ) Skin: Warm/Dry (VERY WARM--TEMP 101.2 ), Pallor, Other ( ABOVE) Focused Exam Lactate Level Lactic Acid Level Progress/Results/Core Measures Suspected Sepsis SIRS Temperature: Pulse: Respiratory Rate: Blood Pressure / Mean: Results/Orders Lab Results My Orders Medications Given in ED Vital Signs/I&O Capillary Refill : Progress Note : Progress Note PT REMAINED SOMEWHAT ARGUMENTATIVE THROUGHOUT ER STAY REFUSES TYLENOL AND MOTRIN FOR FEVER--STATES HE CAN'T TAKE THEM BECAUSE OF HIS LIVER AND KIDNEY PROBLEMS NO DETERIORATION IN PT'S CONDITION DURING ER STAY ECG Initial ECG Impression Date: November 01, 2017 Initial ECG Impression Time: 22:43 Initial ECG Rate: 99 Initial ECG Rhythm: Normal Sinus Initial ECG Impression: Normal EKG : EKG Time: 22:54 Rate: 90 Rhythm: Normal Sinus (INCOMPLETE RBBB, PROLONGED QT) Diagnostic Imaging Comments CXR--BIBASILAR ATELECTASIS/INFILTRATES VS UNDER-INFLATION, PENDING RADIOLOGIST REVIEW CT HEAD--NO ACUTE PROCESS, PER [facility] VIA FAX @ [phone] XRAYS LEFT TIB-FIB--NO ACUTE PROCESS XRAYS LEFT ANKLE--NO ACUTE PROCESS XRAYS LEFT FOOT--NO ACUTE PROCESS ALL PENDING RADIOLOGIST REVIEW ULTRASOUND / VENOUS DOPPLER LEFT LEG--NO DVT. PER [facility] VIA FAX @ [phone] Reviewed: Reviewed by [facility] Departure Communication (Admissions) 233--CALLED TRANSFER LINE. [phone]--SPOKE WITH CENTRAL OFFICE OPERATOR SUPERVISOR. ANNELISE HOSPITALIST 2241--SPOKE WITH [facility]--PT HAS BEEN ACCEPTED BY DR. ANGEL LUIS GARCIA, TO BE ADMITTED TO TELEMETRY/TRANSPLANT FLOOR [id number]. HAVE BEEN ADVISED TO GIVE DOSE OF ZOSYN Impression Primary Impression: Severe sepsis Additional Impressions: Cellulitis of left leg Diabetic ulcer of right foot Altered mental status S/P liver transplant Chronic renal failure NIDDM Peripheral neuropathy Chronic generalized pain Disposition: XF SHT-TRM HOSP Condition: Stable/Unchanged Departure-Patient Inst. Referrals: ARMANI PALOMARES MD (PCP) Primary Care Physician Images Extremities-Lower 1 - Cellulitis 2 - Cellulitis 1 - Pressure Ulcer RICHARD SOUTH DO November 01, 2017 22:34
[2017-11-01 22:43] LABS: BAND NEUTROPHILS 0 %; BASOPHILS % (MANUAL) 0 %; EOSINOPHILS % (MANUAL) 0 %; LYMPHOCYTES % (MANUAL) 9 %; MONOCYTES % (MANUAL) 6 %; NEUTROPHILS % (MANUAL) 85 %; RBC MORPH NORMAL
[2017-11-01 22:44] LABS: INR 1.3 (0.8-1.4); PROTHROMBIN TIME PATIENT 16.1 SEC (12.2-14.7)
[2017-11-01] MEDS ORDERED: NS IV 1000 ML 1,000 ML IV ONE (22:47)
[2017-11-01 22:53] LABS: CREATINE KINASE MB 0.3 NG/ML (<6.6)
[2017-11-01 23:14] LABS: AMMONIA 23 UMOL/L (11-32); AMYLASE 23 U/L (25-125); LIPASE 12 U/L (8-78)
[2017-11-01 23:17] LABS: ACETAMINOPHEN < 10 UG/ML (10-30)
[2017-11-02] MEDS ORDERED: TAZOBACTAM IV ONE (00:15)
[2017-11-02] MEDS ORDERED: D5W IV ONE (00:15)
[2017-11-02] MEDS ORDERED: PIPERACILLIN SODIUM IV ONE (00:15)
[2017-11-02 01:00] VITALS: BP 129/70
--- NOTE | 2017-11-02 06:01 | Diagnostic Imaging Report ---
PROCEDURE: CT head without contrast. TECHNIQUE: Multiple contiguous axial images were obtained through the brain without the use of intravenous contrast. DATE: November 01, 2017. COMPARISON: None. INDICATION: 56-year-old male, dizziness and weakness. FINDINGS: The ventricles and cerebral spinal fluid spaces are of normal size and configuration for the patient's age. There is no mass effect or midline shift. There is no acute intracranial hemorrhage. There is no abnormal extra-axial fluid collection. The visualized portions of the paranasal sinuses, mastoid air cells and middle ears are well aerated. IMPRESSION: 1. No identified acute intracranial abnormality. Dictated by: Dictated on workstation # [id number]
--- NOTE | 2017-11-02 06:09 | Diagnostic Imaging Report ---
PROCEDURE: US left lower extremity venous. TECHNIQUE: Multiple real-time grayscale images were obtained over the left lower extremity in various projections. Additional duplex Doppler and color Doppler images were also obtained. DATE: November 01, 2017. INDICATION: 56-year-old male, left lower extremity redness, swelling, and pain. COMPARISON: None. FINDINGS: Left common femoral vein, left superficial femoral vein, and left popliteal vein are all compressible with normal flow and response to augmentation. The visualized portions of the left greater saphenous vein and deep femoral veins are patent. The left posterior tibial vein and peroneal veins are patent. IMPRESSION: 1. Negative for left lower extremity deep venous thrombosis. Dictated by: Dictated on workstation # [id number]
--- NOTE | 2017-11-02 07:15 | Diagnostic Imaging Report ---
INDICATION: Dizziness and weakness EXAMINATION: Chest 11/01/2017 COMPARISON: 06/19/2015 FINDINGS: A single frontal view if the chest demonstrate cardiomegaly. Pulmonary vasculature is unremarkable. There is an infiltrate at the left lung base. No effusions. No pneumothorax. Atelectasis right lung base also noted. IMPRESSION: 1. Left base infiltrate with atelectasis or infiltrate at the right lung base as well. Remaining chest is stable from prior. Dictated by: Dictated on workstation # [id number]
--- NOTE | 2017-11-02 07:33 | Diagnostic Imaging Report ---
EXAMINATION: Left ankle, 3 views. COMPARISON: None. INDICATION: 56-year-old male, left ankle pain. FINDINGS: There is degenerative type enthesophyte formation at the insertion of the Achilles tendon. There is a calcaneal heel spur. There is an os trigonum. There is well-corticated ossification dorsally at the level of the talonavicular articulation which may relate to degenerative type enthesopathy and/or sequela of remote prior injury. There is additional dorsal midfoot enthesopathy. There is productive bone formation arising from the medial malleolus which may relate to sequela of remote prior injury. The alignment of the ankle mortise is unremarkable. There is no identified acute fracture. There is no cortical or aggressive bone destruction. There is no large ankle joint effusion. IMPRESSION: 1. No identified acute bony abnormality. 2. Multifocal degenerative type enthesopathy. Dictated by: Dictated on workstation # [id number]
--- NOTE | 2017-11-02 07:35 | Diagnostic Imaging Report ---
EXAMINATION: Left foot, 2 views. COMPARISON: 01/15/2007. INDICATION: 56-year-old male, left foot pain. FINDINGS: There is degenerative type calcaneal enthesopathy and degenerative type enthesopathy at the dorsal aspect of the midfoot. There is nonspecific soft tissue swelling dorsally at the level of the foot. There is an os trigonum. There is mild osteoarthritis at the first metatarsophalangeal joint. There is degenerative type enthesopathy at the insertion site of the peroneus brevis. There is no cortical or aggressive bone destruction. There is no acute fracture. There is no radiopaque foreign body. IMPRESSION: 1. Nonspecific soft tissue swelling dorsally at the level of the foot. 2. No identified acute bony abnormality. Dictated by: Dictated on workstation # [id number]
--- NOTE | 2017-11-02 07:36 | Diagnostic Imaging Report ---
EXAMINATION: Left tibia and fibula, 2 views, 4 images. COMPARISON: None. INDICATION: 56-year-old male, left leg pain. FINDINGS: There is degenerative type calcaneal enthesopathy and of the dorsal midfoot. There is an os trigonum. There is no large ankle joint effusion. There is no cortical or aggressive bone destruction. There is no radiopaque foreign body. There is productive bone formation arising from the medial malleolus which may relate to sequela of remote prior injury. There is diffuse reticulation of subcutaneous fat at the level of the tibia and fibula which may relate to diffuse subcutaneous edema. IMPRESSION: 1. No identified acute bony abnormality of left tibia or fibula. 2. Diffuse reticulation of subcutaneous fat at the level of the tibia and fibula which may relate to subcutaneous edema. Dictated by: Dictated on workstation # [id number]
== END 2017-11-02 01:00 | disposition short-term general hospital (02) ==
LOC: EDUNIT# 21:38 → ER 21:39
DX: A41.9 Sepsis, unspecified organism (principal); E11.621 Type 2 diabetes mellitus with foot ulcer; L97.519 Non-pressure chronic ulcer of other part of right foot with unspecified severity; L03.116 Cellulitis of left lower limb; E11.22 Type 2 diabetes mellitus with diabetic chronic kidney disease; I12.9 Hypertensive chronic kidney disease with stage 1 through stage 4 chronic kidney disease, or unspecified chronic kidney disease; N18.9 Chronic kidney disease, unspecified; G47.30 Sleep apnea, unspecified; E66.01 Morbid (severe) obesity due to excess calories; F17.210 Nicotine dependence, cigarettes, uncomplicated; Z87.19 Personal history of other diseases of the digestive system; Z85.828 Personal history of other malignant neoplasm of skin; Z86.14 Personal history of Methicillin resistant Staphylococcus aureus infection; Z94.4 Liver transplant status; Z68.41 Body mass index [BMI] 40.0-44.9, adult; Z87.442 Personal history of urinary calculi; Z86.010 Personal history of colon polyps; Z88.5 Allergy status to narcotic agent
CPT/HCPCS: 36415; 70450; 71045; 73590; 73610; 73620; 80053; 80320; 80329; 82140; 82150; 82550; 82553; 82805; 83605; 83690; 83735; 84443; 84484; 85007; 85027; 85610; 85730; 87040; 87070; 87077; 87186; 87205; 93005; 93041; 96365